=== PATIENT | male | born 1990 | race Caucasian/White ===

== ENCOUNTER → 2020-03-12 09:52 | Outpatient (CLI) | payer BC, SELFPAY ==
[2020-03-12 10:54] LABS: COVID19 -Nasal RAPID Negative (Negative)
== END ==
PROVIDERS: Family Provider Pediatrics; Visit Provider Nurse Practitioner
DX: Z20.828 Contact with and (suspected) exposure to other viral communicable diseases (principal); J02.9 Acute pharyngitis, unspecified
CPT/HCPCS: 87635